=== PATIENT | male | born 1950 | race Caucasian/White ===

== ENCOUNTER 2018-04-25 16:13 | Emergency (ER) | payer MEDICARE, BC ==
[2018-04-25] MEDS ORDERED: Doxycycline 100 MG Cap PO ONE (18:13)
--- NOTE | 2018-04-25 18:14 | EDM.PDOC ---
ED HPI GENERAL MEDICAL PROBLEM - General Chief Complaint: Bite:Animal, Insect Stated Complaint: DEER TICK BITE ON UPPER LEFT LEG Time Seen by Provider: 04/25/18 17:28 Source of Information: Reports: Patient, Family History Limitations: Reports: No Limitations - History of Present Illness INITIAL COMMENTS - FREE TEXT/NARRATIVE: 67 yo male presents to ER with deer tick bite to left buttock. Tick was removed this afternoon and brought to ER for positive ID as deer tick. afebrile. denies headache, chills, night sweats, SOB or CP. bite site 1 cm dark target lesion - Related Data Allergies Allergy/AdvReac Type Severity Reaction Status Date / Time No Known Allergies Allergy Verified 04/25/18 17:26 Home Meds: Home Meds Canagliflozin [Invokana] 04/25/18 [History] Carvedilol 1 tab PO BID 04/25/18 [History] Dulaglutide [Trulicity] 04/25/18 [History] Insulin Detemir [Levemir Flextouch] 04/25/18 [History] Losartan [Cozaar] 04/25/18 [History] Omeprazole 1 tab PO DAILY 04/25/18 [History] Spironolactone [Aldactone] 04/25/18 [History] atorvaSTATin [Lipitor] 04/25/18 [History] Past Medical History HEENT History: Reports: Cataract Cardiovascular History: Reports: High Cholesterol Endocrine/Metabolic History: Reports: Diabetes, Type II - Past Surgical History Cardiovascular Surgical History: Reports: Coronary Artery Bypass, Coronary Artery Stent GI Surgical History: Reports: Appendectomy, Colostomy, Hernia Repair/Other Social & Family History - Tobacco Use Smoking Status *Q: Never Smoker ED ROS GENERAL - Review of Systems Review Of Systems: See Below Constitutional: Denies: Fever, Chills, Malaise, Fatigue, Night Sweats Respiratory: Denies: Shortness of Breath, Wheezing Cardiovascular: Denies: Chest Pain ED EXAM, ANIMAL BITE - Physical Exam Exam: See Below Exam Limited By: No Limitations General Appearance: Alert, WD/WN, No Apparent Distress Respiratory/Chest: No Respiratory Distress Skin Exam: Other (left buttock 1 cm taget lesion, no signs of infection) Course - Vital Signs Last Recorded V/S: Last Vital Signs Temp 35.9 C 04/25/18 17:45 Pulse 66 04/25/18 17:45 Resp 14 04/25/18 17:45 BP 135/83 04/25/18 17:45 Pulse Ox 97 04/25/18 17:45 - Orders/Labs/Meds Meds: Medications Discontinued Medications Generic Name Dose Route Start Last Admin Trade Name Gregoria PRN Reason Stop Dose Admin Doxycycline Hyclate 200 mg 04/25/18 18:13 Vibramycin PO 04/25/18 18:14 ONETIME ONE - Re-Assessments/Exams Free Text/Narrative Re-Assessment/Exam: 04/25/18 18:21 one dose doxycycline 200 mg given in ER Departure - Departure Time of Disposition: 18:13 Disposition: Home, Self-Care 01 Condition: Good Clinical Impression: Tick bite of buttock Qualifiers: Encounter type: initial encounter Qualified Code(s): S30.860A - Insect bite ( nonvenomous) of lower back and pelvis, initial encounter - Discharge Information Instructions: Tick Bite Information, Adult, [id number] Referrals: PCP,None [Primary Care Provider] - Forms: ED Department Discharge
== END 2018-04-25 18:30 | disposition home or self-care (01) ==
LOC: JP.ED 16:13
DX: S30.860A Insect bite (nonvenomous) of lower back and pelvis, initial encounter (principal); E11.9 Type 2 diabetes mellitus without complications; E78.00 Pure hypercholesterolemia, unspecified; Z79.4 Long term (current) use of insulin; Z79.899 Other long term (current) drug therapy; W57.XXXA Bitten or stung by nonvenomous insect and other nonvenomous arthropods, initial encounter
CPT/HCPCS: 99282; A9270

== ENCOUNTER 2021-09-01 13:09 | Emergency (ER) | payer MEDICARE, BC ==
--- NOTE | 2021-09-01 15:39 | EDM.PDOC ---
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 He denies any other injuries, trauma or concerns. Upon presentation to emergency room, ROM intact, sensation intact. TDAP unknown, >10 years ago. Left Hand Pain Score (Numeric/FACES): 3 - Related Data Allergies Allergy/AdvReac Type Severity Reaction Status Date / Time No Known Allergies Allergy Verified 09/01/21 14:49 Home Meds: Home Meds Losartan [Cozaar] 50 mg PO DAILY 04/25/18 [History] Omeprazole 20 mg PO DAILY 04/25/18 [History] Spironolactone [Aldactone] 25 mg PO DAILY 04/25/18 [History] atorvaSTATin [Lipitor] 40 mg PO DAILY 04/25/18 [History] carvediloL [Carvedilol] 6.25 mg PO BID 04/25/18 [History] Dapagliflozin Propanediol [Farxiga] 10 mg PO ASDIRECTED 09/01/21 [History] Dulaglutide [Trulicity] 3 mg SUBCUT WEEKLY 09/01/21 [History] Insulin Aspart [NovoLOG] 1 unit SUBCUT ASDIRECTED 09/01/21 [History] Insulin Detemir [Levemir] 50 units SUBCUT BID 09/01/21 [History] Past Medical History HEENT History: Reports: Cataract Cardiovascular History: Reports: High Cholesterol Endocrine/Metabolic History: Reports: Diabetes, Type II - Past Surgical History Cardiovascular Surgical History: Reports: Coronary Artery Bypass, Coronary Artery Stent GI Surgical History: Reports: Appendectomy, Colostomy, Hernia Repair/Other Social & Family History - Tobacco Use Tobacco Use Status *Q: Never Tobacco User - Caffeine Use Caffeine Use: Reports: Coffee - Recreational Drug Use Recreational Drug Use: No ED ROS GENERAL - Review of Systems Review Of Systems: See Below Constitutional: Reports: No Symptoms HEENT: Reports: No Symptoms Respiratory: Reports: No Symptoms Cardiovascular: Reports: No Symptoms Endocrine: Reports: No Symptoms GI/Abdominal: Reports: No Symptoms : Reports: No Symptoms Musculoskeletal: Reports: Other (left 4th, 5th finger pain, lacerations) Skin: Reports: Wound (Laceration x 2 to left 4th finger. Injury/avulstion of tissue left 5th finger. ) Neurological: Reports: No Symptoms Psychiatric: Reports: No Symptoms Hematologic/Lymphatic: Reports: No Symptoms Immunologic: Reports: No Symptoms ED EXAM, SKIN/RASH Exam: See Below Exam Limited By: No Limitations General Appearance: Alert, WD/WN, No Apparent Distress Head: Atraumatic, Normocephalic Neck: Normal Inspection, Supple, Non-Tender, Full Range of Motion. No: Lymphadenopathy (R), Lymphadenopathy (L) Respiratory/Chest: No Respiratory Distress, Lungs Clear, Normal Breath Sounds, No Accessory Muscle Use, Chest Non-Tender. No: Crackles, Rales, Rhonchi, Wheezing, Stridor Cardiovascular: Normal Peripheral Pulses, Regular Rate, Rhythm, No Edema, No Gallop, No Murmur, No Rub Peripheral Pulses: 4+: Radial (L), Radial (R) Back Exam: Normal Inspection, Full Range of Motion. No: CVA Tenderness (R), CVA Tenderness (L) Extremities: Normal Range of Motion, No Pedal Edema, Normal Capillary Refill, Other (two lacerations linear with jagged edges 2cm and 3.5 cm to left 4th dorsum of finger. Small <0.5cm avulsion fo tissues from distal finger at nailbed with nailbed injury right 5th finger. ) Neurological: Alert, Oriented, CN II-XII Intact, Normal Cognition, Normal Gait, Normal Reflexes, No Motor/Sensory Deficits Psychiatric: Normal Affect, Normal Mood Skin: Warm, Dry, Normal Color, Wound/Incision (as above) Location, Skin: Upper Extremity, Left Characteristics: Linear (wtih jagged edges, noted foreign body appearance to wound bed per x-ray, small avulsed piece of bone. ) Associated features: Tenderness Lymphatic: No Adenopathy ED SKIN PROCEDURES - Laceration/Wound Repair Left Dorsal Digit - 4th (Ring) Appearance: Subcutaneous, Linear, Mildly Contaminated Distal NVT: Neuro & Vascular Intact, Other (noted extensor tendon injury with small bone chip evulsion. Injury reviewed per Dr. Wang. ROM intact, wound irrigated extensively and closed. ) Anesthetic Type: Local Local Anesthesia - Lidocaine (Xylocaine): 1% with EPI Local Anesthesia - Bupivicaine (Marcaine): Other (left 4th digital block) Local Anesthetic Volume: 2cc Skin Prep: Chlorhexidine (Hibiciens), Saline Saline Irrigation (cc's): 2,000 Exploration/Debridement/Repair: Wound Explored, In a Bloodless Field, Explored to Base, Minimal Debridement, Foreign Material Removed, Multiple Flaps Aligned Closed with: Sutures Lac/Wound length In cm: 3.0 Suture Size: 4-0 # of Sutures: 1 (running) Suture Type: Nylon Drain Placement: No Sterile Dressing Applied: Nurse Tetanus Status Addressed: Yes Complications: No Progress/Comments: Patient tolerated well. Second laceration to dorsum of left 4th finger 2.5cm in length, repaired with 4- 0 nylon and one running suture. Wound edges approximated. Patient tolerated well. Education provided on signs and symptoms of infection, patient and his verbalized understanding. Course - Vital Signs Last Recorded V/S: Last Vital Signs Temp 36.1 C 09/01/21 14:49 Pulse 84 09/01/21 14:49 Resp 16 09/01/21 14:49 BP 164/96 H 09/01/21 14:49 Pulse Ox 97 09/01/21 14:49 - Orders/Labs/Meds Meds: Medications Discontinued Medications Generic Name Dose Route Start Last Admin Trade Name Gregoria PRN Reason Stop Dose Admin Bacitracin 1 dose 09/01/21 15:53 09/01/21 17:35 Bacitracin Oint 1 Gm U/D Packet TOP 09/01/21 15:54 1 dose ONETIME ONE Administration Diphtheria/Tetanus/Acell Pertussis 0.5 ml 09/01/21 15:51 09/01/21 17:35 Diphtheria,Pertussis(Acell),Tetanus Vaccine 0.5 Ml Syringe IM 09/01/21 15:52 0.5 ml .ONCE ONE Administration Lidocaine/Epinephrine 3 ml 09/01/21 15:51 09/01/21 17:34 Lidocaine 1% With Epinephrine 1:100,000 50 Ml Mdv INFILT 09/01/21 15:52 3 ml NOW STA Administration - Radiology Interpretation Free Text/Narrative:: X-ray noted soft tissue laceration along ulnar margin of the 4th middle phalanx with an associated nondisplaced fracture of the 4th middle phalanx. - Re-Assessments/Exams Free Text/Narrative Re-Assessment/Exam: Dr. Wang consulted on wound closure, he agrees with plan. Patient advised to take antibiotic as directed and follow up with orthopedics in [facility] where he lives. Patient and his verbalized plan. Bacitracin to wounds and finger dressing applied. Adaptic to avulsion fo left 5th finger tip and finger dressing applied. Departure - Departure Time of Disposition: 17:53 Disposition: Home, Self-Care 01 Condition: Good Clinical Impression: Nondisplaced fracture of middle phalanx of left ring finger, initial encounter for open fracture, Open fracture of finger of left hand, Laceration of left index finger with tendon involvement - Discharge Information Instructions: Finger Fracture, Adult, [id number], Laceration Care, Adult, [id number] Referrals: PCP,None [Primary Care Provider] - Forms: ED Department Discharge Additional Instructions: You have been evaluated and treated for open nondisplaced fracture of the 4th middle phalanx with extensor tendon damage. Abrasion and damage to left 5th fingernail bed - unable to suture closed. Good range of motion present prior to and after laceration repair. The wound was washed out with 2000ml normal saline and closed. Two running sutures to the two lacerations of left 4th finger. Bacitracin applied with sterile finger dressing to left 4th finger. Bacitracin and adaptic to left 5th finger wound and finger dressing applied. Keep current dressing on for 24 hours. You can shower once a day then. Keep the wounds clean and dry. Apply a thin layer of bacitracin to the wounds twice per day with a light bandage. Use vaseline gauze or adaptic to the 5th finger area with a bandage over to help with healing - change as needed and once a day. Take tylenol and ibuprofen as needed for pain. For uncontrolled pain take hydrocodone as directed. Take cephalexin 1000mg by mouth twice per day for 10 days. Follow up with your orthopedic provider in 7 to 10 days. Have sutures removed in 10 days. Return at any time for any worsening, issues or concerns. Sepsis Event Note (ED) - Evaluation Sepsis Screening Result: No Definite Risk - Focused Exam Vital Signs: Vital Signs Temp Pulse Resp BP Pulse Ox 09/01/21 14:49 36.1 C 84 16 164/96 H 97 09/01/21 14:39 36.1 C 84 16 164/96 H 97 - Assessment/Plan Assessment:: Nondisplaced fracture of middle phalanx of left ring finger, initial encounter for open fracture, Open fracture of finger of left hand, Laceration of left index finger with tendon involvement Plan: Patient evaluated and treated for open nondisplaced fracture of the 4th middle phalanx with extensor tendon damage. Abrasion and damage to left 5th fingernail bed - unable to suture closed. Good range of motion present prior to and after laceration repair. The wound was washed out with 2000ml normal saline and closed. Two running sutures to the two lacerations of left 4th finger. Bacitracin applied with sterile finger dressing to left 4th finger. Bacitracin and adaptic to left 5th finger wound and finger dressing applied. Take tylenol and ibuprofen as needed for pain. For uncontrolled pain take hydrocodone as directed. Take cephalexin 1000mg by mouth twice per day for 10 days. Follow up with your orthopedic provider in 7 to 10 days. Have sutures removed in 10 days. Return at any time for any worsening, issues or concerns.
[2021-09-01] MEDS ORDERED: Diphtheria,Pertussis(Acell),Tetanus Vaccine 0.5 ML Syringe IM ONE (15:51)
[2021-09-01] MEDS ORDERED: Lidocaine 1% with EPINEPHrine 1:100,000 50 ML MDV INFILT STA (15:51)
[2021-09-01] MEDS ORDERED: Bacitracin Oint 1 GM U/D Packet TOP ONE (15:53)
--- NOTE | 2021-09-01 17:08 | CRLCR ---
For Patients: As a result of the Cures Act, medical imaging exams and procedure reports are released immediately into your electronic medical record. You may view this report before your referring provider. If you have questions, please contact your health care provider. INDICATION: Crush injury. TECHNIQUE: Two views of the left hand. COMPARISON: None. IMPRESSIONS: There is a soft tissue laceration along the ulnar margin of the 4th middle phalanx with an associated nondisplaced fracture of the 4th middle phalanx. The remainder of the osseous structures are intact. Degenerative changes are noted. Atherosclerotic changes are also present. Dictated by Joaquín Coleman MD @ 09/01/2021 5:06:05 PM Dictated by: Joaquín Coleman MD @ 09/01/2021 17:06:19 (Electronically Signed)
== END 2021-09-01 18:43 | disposition home or self-care (01) ==
LOC: JP.ED 13:09
DX: S62.655B Nondisplaced fracture of middle phalanx of left ring finger, initial encounter for open fracture (principal); S66.321A Laceration of extensor muscle, fascia and tendon of left index finger at wrist and hand level, initial encounter; Z23 Encounter for immunization; W20.8XXA Other cause of strike by thrown, projected or falling object, initial encounter
CPT/HCPCS: 12002; 73120-LT; 90471; 90715; 99283-25